=== PATIENT | female | born 1955 | race Caucasian/White ===

== ENCOUNTER 2021-03-19 09:21 | Observation (INO) | payer MEDICARE, SELFPAY ==
[2021-03-18 21:30] VITALS: O2SAT 100
[2021-03-18 21:56] VITALS: BMI 33.3
[2021-03-18 22:00] VITALS: BP 128/74; PULSE 82; RESP 22; TEMP 36.5; O2SAT 98
[2021-03-18] MEDS: SODIUM CHLORIDE 0.9% IV 1,000 ML 500 ML IV CONT (22:20)
--- NOTE | 2021-03-18 22:24 | PM.IMHP ---
H&P: HPI History of Present Illness Date/Time: 03/18/21 22:24 Chief Complaint: Transferred from outside hospital due to UTI and hypotension Narrative: 65-year-old female with a past medical history of fibromyalgia, multiple sclerosis, systolic congestive heart failure, obesity, neurogenic bladder, DVT and pulmonary embolism due to lupus anticoagulant who presented to the ER at [facility] due to 24 hours of being weaker than usual. The patient also reported left posterior shoulder pain that has been ongoing for the last 3 days. She relates that her Robaxin was recently discontinued and replaced with another medication. She was never able to tell me exactly what medication Robaxin was switched with. The pain is worse on palpation and she reports the pain is severe in nature. The patient's reported the last time she rib resented to the ER in this fashion was due to UTI. The patient has a known 10 mm right pelvic Freda see kidney stone and was supposed to have elective cystoscopy on the . Subsequently her Eliquis has been on hold due to her anticipated procedure. The patient denies any dysuria. She does have difficulty with his increased urinary frequency due to neurogenic bladder. His not noticed any hematuria. She has chronic right upper and lower extremity weakness. It is unclear if she still ambulates. She denies any chest pain or shortness of breath. She denies having any fevers or chills. At the outside hospital her temperature was 99?. Initially at the outside ER the patient's blood pressure was reportedly normal. However, shortly after receiving Rocephin and 0.5 mg of Dilaudid patient dropped her blood pressures to 70 systolic. The physician at the outside ER did not feel comfortable giving the patient more than 500 mL of fluid bolus due to her history of chronic systolic congestive heart failure. He did provide 500 mL bolus and started the patient on low-dose peripheral Levophed. Labs were obtained which demonstrated normal lactic acid normal troponin elevated CRP at 12.6 UA cloudy specific gravity 1.025 3+ leukocyte Estrace negative nitrates 2+ protein 2+ blood many white blood cells 0-5 red cells rare epithelial cells and 2+ bacteria. She had a chest x-ray did demonstrated stable cardiomegaly without acute process. Blood cultures and urine cultures were obtained. Left shoulder x-ray was obtained and demonstrated no acute process. While at the outside hospital patient received half a mg Dilaudid, 1 g a of p.o. Tylenol, 1 g of Rocephin. [place] [address]. BUN 20 creatinine 1.38 AST ALT and alk-phos unremarkable sodium was 139 potassium 4 glucose 109. Hemoglobin was 10.5 platelet count 278,000 with normal differential. When outside facility contacted us for transfer for a central line was requested. The physician tried to place a right IJ without success. After he had attempted the procedure patient's blood pressure had normalized without any further intervention. The patient did get an additional 500 mL fluid bolus for a total of 1 L at the outside ER. Review of Systems Review of Systems: 12 systems were reviewed with pertinent positives and negatives per HPI. Except as documented in the HPI, all other systems were reviewed and are negative. However the patient is a difficult historian in only answer yes to question but then will not elaborate. [facility] Past Medical History Medical History (Updated 03/18/21 @ 23:17 by Agustina Valdovinos DO) Chronic pain syndrome Fibromyalgia Lupus anticoagulant disorder Multiple sclerosis Neurogenic bladder Obstructive sleep apnea Patient states she no longer uses CPAP after with losing weight Osteoporosis Systolic congestive heart failure Reported EF of 35% Surgical History Surgical History (Updated 03/18/21 @ 22:50 by Agustina Valdovinos DO) History of appendectomy History of hysterectomy for benign disease History of laminectomy Hx of cholecystectomy Status pos
--- NOTE | 2021-03-18 23:27 | PC.NURSE ---
This patient, Jeanette Patel, was admitted to Intensive Care Unit-5 at 2120 Patient/family oriented to hospital policies and general routines including ID bracelet, bed and alarms, visiting hours, pain management, procedures, bathroom and other care routines, personal items, smoking policy, room service/diet, and visiting hours. Information on how to activate the Rapid Response Team has been discussed. Patient/Family are encouraged to report perceived risks to care and to ask questions if they do not understand what they are told or what they should do.
[2021-03-19] VITALS (10 sets, daily range): BP systolic 91–135; BP diastolic 51–84; PULSE 77–93; RESP 16–22; TEMP 36.6–37.3; O2SAT 97–100
--- NOTE | ~2021-03-19 | US_ITS ---
EXAMINATION: US renal BI DATE: 03/19/2021 13:09 INDICATION: Right kidney stone TECHNIQUE: Multiple grayscale and Doppler ultrasound images of the kidneys were obtained. COMPARISON: None. FINDINGS: The right kidney is partially obscured by overlying bowel gas. The right kidney measures 14 .1 x 6.1 x 7.0 cm. The left kidney measures 11.3 x 4.9 x 4.6 cm. The kidneys demonstrate normal paren chymal echogenicity. There is no hydronephrosis. The bladder is normal. IMPRESSION: 1. No right nephrolithiasis identified, evaluation limited by overlying bowel gas. Reviewed, dictated and finalized at location A. IMPRESSION: 1. No right nephrolithiasis identified, evaluation limited by overlying bowel g as.
--- NOTE | ~2021-03-19 | XR_ITS ---
EXAMINATION: XR shoulder LT min 2V INDICATION: Left shoulder pain TECHNIQUE: Four views of the left shoulder are submitted. COMPARISON: None FINDINGS: Normal alignment. No fracture. There is moderate osteoarthritis of the glenohumeral and acr omioclavicular joints. There are partially imaged changes of cervical spine fusion. Soft tissues are unremarkable. IMPRESSION: 1. No acute osseous abnormality. Reviewed, dictated and finalized at location A.
[2021-03-19] MEDS: carvediloL 12.5 MG TABLET PO (00:24)
[2021-03-19] MEDS: ENOXAPARIN 100 MG/ML SYRINGE 95 MG SUB-Q ×2 (00:24→13:37)
[2021-03-19] MEDS: BACLOFEN 10 MG TABLET PO (00:25)
[2021-03-19] MEDS: SODIUM CHLORIDE 0.9% IV 1,000 ML 100 ML IV CONT (00:33)
[2021-03-19 04:29] LABS: Basophils Absolute Auto 0.1 K/mm3 (0.0-0.1); Basophils Percent Auto 0.4 % (0.2-1.2); Eosinophils Percent Auto 0.1 % (0-4.4); Hematocrit 28.5 % (37.0-47.0); Hemoglobin 8.7 g/dL (12.0-15.0); Immature Granulocyte Absolute 0.04 K/mm3 (0.00-0.031); Immature Granulocyte Percent A 0.3 % (0-0.5); Lymphocytes Absolute Auto 1.31 K/mm3 (0.9-3.2); Lymphocytes Percent Auto 11.4 % (18.3-44.2); Mean Corpuscular HGB Conc 30.5 g/dl (32-36); Mean Corpuscular Hemoglobin 23.4 pg (26-34); Mean Corpuscular Volume 76.6 fl (80-100); Mean Platelet Volume 10.8 fl (7.4-10.4); Monocytes Absolute Auto 0.6 K/mm3 (0.1-0.6); Monocytes Percent Auto 5.5 % (2.6-8.5); Neutrophils Absolute Auto 9.4 K/mm3 (1.3-6.7); Neutrophils Percent Auto 82.3 % (45.5-73.1); Platelet Count Result 268 k/mm3 (150-375); Red Blood Count 3.72 M/mm3 (4.2-5.4); Red Cell Distribution Width 19.3 % (11.5-14.5); White Blood Count 11.5 K/mm3 (4.5-10.0)
[2021-03-19 04:45] LABS: Anion Gap 5 mmol/L (8-16); Blood Urea Nitrogen 21 mg/dL (7-17); Carbon Dioxide 21 mmol/L (22-30); Chloride 105 mmol/L (98-107); Estimated CRCL calculation 49 ml/min; Estimated Glomerular Filt Rate 45; Glucose 94 mg/dL (65-110); Potassium 3.6 mmol/L (3.4-5.0); Sodium 131 mmol/L (137-145)
[2021-03-19] MEDS: SUCRALFATE 1 GM TABLET PO ×2 (06:28→13:36)
--- NOTE | 2021-03-19 09:08 | PC.NURSE ---
[facility] flyer was given to patient in admission folder.
[2021-03-19] MEDS: ESCITALOPRAM OXALATE 10 MG TABLET 20 MG PO (09:16)
[2021-03-19] MEDS: NORTRIPTYLINE HCL 25 MG CAPSULE 50 MG PO (09:16)
[2021-03-19] MEDS: ASPIRIN 81 MG ENTERIC TABLET PO (09:16)
[2021-03-19] MEDS: CHOLECALCIFEROL 1,000 UNITS TABLET 1000 UNITS PO (09:16)
[2021-03-19] MEDS: PANTOPRAZOLE 40 MG TABLET PO (09:17)
[2021-03-19] MEDS: PRAVASTATIN SODIUM 20 MG TABLET PO (09:17)
[2021-03-19] MEDS: PREGABALIN (*CRX) 50 MG CAPSULE 200 MG PO (09:17)
[2021-03-19] MEDS: HYDROcodone/acetaminophen (*CRX) 5-325 MG TABLET 1 TAB PO (09:21)
[2021-03-19] MEDS: ALBUMIN HUMAN 25% 25 GM/100 ML 100 ML IVPB ×2 (09:22→13:36)
[2021-03-19] MEDS: LIDOCAINE 5% PATCH 2 PATCH TRANSDERM (10:00)
--- NOTE | 2021-03-19 11:27 | WPDURCON ---
Assessment and Plan Assessment and plan (1) Right renal stone: Code(s): N20.0 - Calculus of kidney Status: Acute (2) UTI (urinary tract infection): Code(s): N39.0 - Urinary tract infection, site not specified Status: Acute Assessment and Plan: Known 1 cm right renal stone which, by prior imaging, has been nonobstructing Recurrent Proteus urinary tract infection Given prompt response to fluid resuscitation I doubt that she has an underlying obstructive pyelonephritis. Get a renal ultrasound to rule out significant hydronephrosis. If no significant ureteral obstruction I think we can simply treat her current UTI and she can follow-up with definitive care (percutaneous nephrolithotomy) as previously planned. Urology Consult Note HPI Date Seen: 03/19/21 Requesting Physician: Agustina Valdovinos DO Primary Care Provider: Sue Montano MD Consult Narrative Narrative: Jeanette Patel is a 65 year old female Who, on occasion, has seen my partner in [place], Dr. Toma Rodríguez. She has a history of recurrent struvite stones that form is result of Proteus urinary tract infections. The last imaging IC on her is a CT scan of the abdomen and pelvis without contrast done in September 2020 at [facility] in [place]. This revealed a 1 cm nonobstructing right lower calyceal stone. The patient is scheduled to have right percutaneous nephrolithotomy sometime in the near future in [place]. She was seen in in the ER there last night with shoulder pain. With administration of pain medication she became hypotensive, prompting transfer here. She responded promptly to fluid resuscitation. She has had septic urinary stones in the past but has no recent symptoms of urinary tract infection. Review of Systems Cardiovascular: Cardiovascular: Denies chest pain, Denies lightheadedness, Denies palpitations and Denies dyspnea Respiratory: Respiratory: Denies dyspnea Gastrointestinal: Gastrointestinal: Denies diarrhea, Denies nausea and Denies vomiting Genitourinary: Genitourinary: Denies hematuria and Denies dysuria Endocrine: Endocrine: Denies palpitations [facility] Past Medical History Medical History Chronic pain syndrome Fibromyalgia Lupus anticoagulant disorder Multiple sclerosis Neurogenic bladder Obstructive sleep apnea Patient states she no longer uses CPAP after with losing weight Osteoporosis Systolic congestive heart failure Reported EF of 35% Surgical History Surgical History History of appendectomy History of hysterectomy for benign disease History of laminectomy Hx of cholecystectomy Status post cervical spinal fusion Status post open reduction with internal fixation of fracture Left distal radius Status post right rotator cuff repair Family History Family History Father Acute myocardial infarction Cerebrovascular accident Mother Breast cancer Sibling Coagulation disorder Hypertension Sibling No significant medical problems Social History Social History Smoking packs per day: 0.5 Smoking cigarettes per day: 10.0 Years smoked: 47 Smoking pack-years: 23.50 Smoking status: Current every day smoker Tobacco type: cigarettes Second hand tobacco smoke exposure: Yes Alcohol intake: never Substance use: never Additional living arrangements comments: . Disabled. Spiritual care concerns: No Meds Home Medications and Allergies Home Medications Medication Instructions Recorded Confirmed Type acetaminophen-codeine 1 tablet PO BID 03/18/21 03/18/21 History apixaban [Eliquis] 25 mg PO BID 03/18/21 03/18/21 History aspirin [Aspir-81] 81 mg PO DAILY 03/18/21 03/18/21 History baclofen 10 mg PO TID PRN 03/18/21 03/18/21 Hi
--- NOTE | 2021-03-19 12:24 | WPDCNINT ---
Assessment and Plan Assessment and plan (1) Sepsis: Code(s): A41.9 - Sepsis, unspecified organism Status: Acute Assessment and Plan: Leukocytosis, hypotension, kidney injury, normal lactic acid -likely source urinary -patient has been adequately fluid-resuscitated -will add albumin 12.5 g IV q.6 hours for 4 doses since patient has CHF -urine and blood cultures have been obtained at the outside hospital, awaiting results -continue ceftriaxone (2) Hypotension arterial: Code(s): I95.9 - Hypotension, unspecified Status: Acute Assessment and Plan: Hypotension has resolved, after IV fluid resuscitation -continue to monitor blood pressures -continue maintenance IV fluids -blood pressures have been stable since admission, not requiring any vasopressors (3) UTI (urinary tract infection): Code(s): N39.0 - Urinary tract infection, site not specified Status: Acute Assessment and Plan: UA reflective of UTI the outside hospital, cultures are pending, continue ceftriaxone (4) Trapezius muscle spasm: Code(s): M62.838 - Other muscle spasm Status: Acute Assessment and Plan: Patient has a history of shoulder pains bilaterally, on nortriptyline, baclofen, Lyrica -patient was given IV Dilaudid and morphine at the outside hospital which dropped her pressures -will add lidocaine patches and p.o. [place] for pain control (5) Hypercoagulable state: Code(s): D68.59 - Other primary thrombophilia Status: Acute Assessment and Plan: Patient has a history of lupus anticoagulant and has been on Eliquis which recently has been on hold for percutaneous nephrostomy for kidney stone -patient has been started on full-dose Lovenox (6) Right renal stone: Code(s): N20.0 - Calculus of kidney Status: Acute Assessment and Plan: Patient has a known 1 cm right renal stone by prior imaging which has been nonobstructive. -regarding Proteus UTIs -adequate IV fluids have been given to the patient -appreciate urology evaluation and recommendation, will obtain renal ultrasound bilaterally to rule out hydronephrosis Additional Plan Discussed with patient updated with her condition and plan of care. I answered all the questions and will be managing her shoulder pain with [place] and lidocaine patches. Status: Full code Critical care time spent: 43 minutes This dictation may have been done utilizing a voice recognition system. Attempts have been made to correct errors. However, there may be uncorrected grammatical, spelling, and recognition errors present. Due to a high probability of clinically significant, life threatening deterioration, the patient required my highest level of preparedness to intervene emergently and I personally spent this critical care time directly and personally managing the patient. This critical care time included obtaining a history; examining the patient; pulse oximetry; ordering and review of studies; arranging urgent treatment with development of a management plan; evaluation of patient's response to treatment; frequent reassessment; and discussions with other providers. It was exclusive of separately billable procedures and treating other patients and teaching time. Please see Assessment and Plan section and the rest of the note for further information on patient assessment and treatment Hypertrichologist Consult Note Consult date: 03/19/21 Time Seen: 07:04 Reason for consult: Hypotension, UTI, hypovolemia HPI: Jeanette Patel is a 65 year old female with past medical history of fibromyalgia, multiple sclerosis, systolic congestive heart failure with the EF of 35%, obesity, neurogenic bladder, history of DVT and PE due to lupus anticoagulant on Eliquis which is currently on hold. Patient presented the outside hospital with complains of weakness and left shoulder pain for the past 2-3 days. Patient was found have a UTI, along with borderline blood pressure,
--- NOTE | 2021-03-19 16:52 | PM.DS ---
DS: Admitting Diagnosis Admitting Diagnosis Chief Complaint: Transferred from outside hospital due to UTI and hypotension DS: Discharge Diagnosis Discharge Diagnosis (1) Sepsis: Code(s): A41.9 - Sepsis, unspecified organism Status: Acute Assessment and Plan: Leukocytosis, hypotension, kidney injury, normal lactic acid -likely source urinary -patient has been adequately fluid-resuscitated -will add albumin 12.5 g IV q.6 hours for 4 doses since patient has CHF -urine and blood cultures have been obtained at the outside hospital, awaiting results -continue ceftriaxone (2) Hypotension arterial: Code(s): I95.9 - Hypotension, unspecified Status: Acute Assessment and Plan: Hypotension has resolved, after IV fluid resuscitation -continue to monitor blood pressures -continue maintenance IV fluids -blood pressures have been stable since admission, not requiring any vasopressors (3) UTI (urinary tract infection): Code(s): N39.0 - Urinary tract infection, site not specified Status: Acute Assessment and Plan: UA reflective of UTI the outside hospital, cultures are pending, continue ceftriaxone (4) Trapezius muscle spasm: Code(s): M62.838 - Other muscle spasm Status: Acute Assessment and Plan: Patient has a history of shoulder pains bilaterally, on nortriptyline, baclofen, Lyrica -patient was given IV Dilaudid and morphine at the outside hospital which dropped her pressures -will add lidocaine patches and p.o. [place] for pain control (5) Hypercoagulable state: Code(s): D68.59 - Other primary thrombophilia Status: Acute Assessment and Plan: Patient has a history of lupus anticoagulant and has been on Eliquis which recently has been on hold for percutaneous nephrostomy for kidney stone -patient has been started on full-dose Lovenox (6) Right renal stone: Code(s): N20.0 - Calculus of kidney Status: Acute Assessment and Plan: Patient has a known 1 cm right renal stone by prior imaging which has been nonobstructive. -regarding Proteus UTIs -adequate IV fluids have been given to the patient -appreciate urology evaluation and recommendation, will obtain renal ultrasound bilaterally to rule out hydronephrosis DS: Summary Hospital Course Reason for hospitalization: Chief Complaint: Transferred from outside hospital due to UTI and hypotension Narrative: 65-year-old female with a past medical history of fibromyalgia, multiple sclerosis, systolic congestive heart failure, obesity, neurogenic bladder, DVT and pulmonary embolism due to lupus anticoagulant who presented to the ER at [facility] due to 24 hours of being weaker than usual. The patient also reported left posterior shoulder pain that has been ongoing for the last 3 days. She relates that her Robaxin was recently discontinued and replaced with another medication. She was never able to tell me exactly what medication Robaxin was switched with. The pain is worse on palpation and she reports the pain is severe in nature. The patient's reported the last time she rib resented to the ER in this fashion was due to UTI. The patient has a known 10 mm right pelvic Freda see kidney stone and was supposed to have elective cystoscopy on the . Subsequently her Eliquis has been on hold due to her anticipated procedure. The patient denies any dysuria. She does have difficulty with his increased urinary frequency due to neurogenic bladder. His not noticed any hematuria. She has chronic right upper and lower extremity weakness. It is unclear if she still ambulates. She denies any chest pain or shortness of breath. She denies having any fevers or chills. At the outside hospital her temperature was 99?. Initially at the outside ER the patient's blood pressure was reportedly normal. However, shortly after receiving Rocephin and 0.5 mg of Dilaudid patient dropped her blood pressures to 70 systolic
== END 2021-03-19 17:10 | disposition home or self-care (01) ==
PROVIDERS: Admitting Provider Internal Medicine; PCP Family Medicine; Visit Provider Family Medicine
DX: N39.0 Urinary tract infection, site not specified (principal); A41.9 Sepsis, unspecified organism; N20.0 Calculus of kidney; M62.838 Other muscle spasm; D68.62 Lupus anticoagulant syndrome; E66.9 Obesity, unspecified; F17.210 Nicotine dependence, cigarettes, uncomplicated; G35 Multiple sclerosis; G47.33 Obstructive sleep apnea (adult) (pediatric); I50.20 Unspecified systolic (congestive) heart failure; N31.9 Neuromuscular dysfunction of bladder, unspecified; R35.0 Frequency of micturition; Z79.01 Long term (current) use of anticoagulants; Z86.718 Personal history of other venous thrombosis and embolism; Z86.711 Personal history of pulmonary embolism; Z68.33 Body mass index [BMI] 33.0-33.9, adult
CPT/HCPCS: 36415; 73030; 76775; 80048; 85025; 96361; 96365; 96366; 96367; 96372; 96376; A9270; G0378; J0696; J1650; J7030; P9047